=== PATIENT | male | born 1950 | race Caucasian/White ===

== ENCOUNTER 2016-11-19 11:24 | Emergency (ER) | payer MEDICARE, BC ==
[2016-11-19] MEDS ORDERED: LORazepam 2 MG/ML MDV IVPUSH ONE (11:28)
[2016-11-19 11:37] VITALS: BP 138/77
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
== END 2016-11-19 13:13 | disposition home or self-care (01) ==
LOC: JP.ED 11:24
DX: R07.89 Other chest pain (principal); F41.1 Generalized anxiety disorder; I10 Essential (primary) hypertension; K21.9 Gastro-esophageal reflux disease without esophagitis; E11.40 Type 2 diabetes mellitus with diabetic neuropathy, unspecified; Z90.49 Acquired absence of other specified parts of digestive tract; Z98.890 Other specified postprocedural states; Z87.891 Personal history of nicotine dependence; Z79.899 Other long term (current) drug therapy; Z88.5 Allergy status to narcotic agent; Z88.6 Allergy status to analgesic agent
CPT/HCPCS: 36415; 80048; 84484; 85025; 93005; 96374; 99285; J2060; 93010; 99284

== ENCOUNTER 2016-11-21 01:03 | Emergency (ER) | payer MEDICARE, BC ==
[2016-11-21] MEDS ORDERED: LORazepam 2 MG/ML MDV IVPUSH ONE (01:09)
[2016-11-21] MEDS ORDERED: Sodium Chloride 0.9% 10 ML Syringe FLUSH PRN (01:09)
[2016-11-21 03:30] VITALS: BP 101/59
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
== END 2016-11-21 08:21 | disposition home or self-care (01) ==
LOC: JP.ED 01:03
DX: R07.89 Other chest pain (principal); F41.9 Anxiety disorder, unspecified; E11.40 Type 2 diabetes mellitus with diabetic neuropathy, unspecified; I10 Essential (primary) hypertension; F32.9 Major depressive disorder, single episode, unspecified; K21.9 Gastro-esophageal reflux disease without esophagitis; Z87.891 Personal history of nicotine dependence; Z90.49 Acquired absence of other specified parts of digestive tract; Z98.890 Other specified postprocedural states; Z79.899 Other long term (current) drug therapy; Z88.5 Allergy status to narcotic agent; Z79.84 Long term (current) use of oral hypoglycemic drugs; Z88.6 Allergy status to analgesic agent
CPT/HCPCS: 36415; 84484; 85379; 96374; 99285; J2060; J7050; 93005; 93010; 99284

== ENCOUNTER 2018-10-12 07:58 | Day surgery (SDC) | payer MEDICARE ==
[~2018-10-12 07:58] MED LIST: Midazolam 1 MG/ML 2 ML SDV ONE; Propofol 200 MG/20 ML SDV ONE; Sodium Chloride 0.9% 1,000 ML IV SCH; fentaNYL 100 MCG/2 ML SDV ONE
[2018-10-12] MEDS: Sodium Chloride 0.9% 1,000 ML IV SCH (08:49)
[2018-10-12] MEDS ORDERED: fentaNYL 100 MCG/2 ML SDV ONE (09:08)
[2018-10-12] MEDS ORDERED: Midazolam 1 MG/ML 2 ML SDV ONE (09:08)
[2018-10-12] MEDS ORDERED: Propofol 200 MG/20 ML SDV ONE (09:08)
[2018-10-12] MEDS: Ropivacaine 27 ML, Dexamethasone 8 MG, EPINEPHrine 0.4 MG, Sodium Chloride 0.9% 50.6 ML NERVRT SCH ×4 (09:43)
[2018-10-12 11:27] VITALS: BP 104/73
--- NOTE | 2018-10-12 14:53 | OR ---
DATE OF PROCEDURE: 10/12/2018 PROCEDURE: Bilateral transversus abdominis plane block. COMPLICATIONS: None. ENGINEERING GROUP LEADER: None. RISKS: Risks, benefits, alternatives, and limitations including, but not limited to infection, bleeding, and perforation of abdominal structures were all explained to the patient who wished to proceed. PROCEDURE IN DETAIL: The patient was placed in the supine position. The left side was addressed first. The area was prepped and draped. Using 11 megahertz ultrasound probe, the transversus abdominis plane was readily identified. The entire content was injected under direct visualization without abnormality. At no time did the needle advance past the peritoneum. The area was then cleaned again with chlorhexidine and Band-Aid was applied. The opposite side was then performed in same manner, same fashion, same technique in the same sequence followed by ultrasound guidance, except different needle and syringe were used. The patient tolerated the procedure well. Jameel Stanford MD /[id number]
--- NOTE | 2018-10-15 13:59 | OR ---
DATE OF PROCEDURE: 10/12/2018 PROCEDURE: 1. EGD. 2. Colonoscopy. FINDINGS: 1. Mild gastritis. 2. Very poor colon prep. Due to poor prep, unable to pass in the transverse colon. COMPLICATIONS: None. SURGEON: Jameel Stanford MD BELL ATTENDANT: None. PREOPERATIVE DIAGNOSIS: Chronic abdominal pain. POSTOPERATIVE DIAGNOSIS: Chronic abdominal pain. RISKS: Risks, benefits, alternatives, and limitations including, but not limited to infection, bleeding, and perforation were explained to the patient, who wished to proceed. PROCEDURE IN DETAIL: The patient was placed in left lateral decubitus position. The EGD scope was introduced and advanced atraumatically in the second part of the duodenum. No abnormalities in there with respect to duodenitis and the other concern. In the stomach, the patient had gastritis what would be described as mild and without evidence of active bleeding. On retroflex, no hiatal hernia. The GE junction was normal. The esophagus was normal. Digital rectal exam was performed. Next, the scope was introduced and immediately a large amount of solid stool was noted. The scope was able to be advanced to level of the transverse colon, however, this was unable to be advanced further due to the significant amount of stool remaining. The procedure was then terminated. The patient tolerated the procedure well. Jameel Stanford MD /[id number]
== END 2018-10-12 12:24 | disposition home or self-care (01) ==
LOC: JP.SDS 07:58
PROVIDERS: ATTEND Surgery
DX: K29.70 Gastritis, unspecified, without bleeding (principal); R10.9 Unspecified abdominal pain; R19.7 Diarrhea, unspecified; F41.9 Anxiety disorder, unspecified; F32.9 Major depressive disorder, single episode, unspecified; E11.9 Type 2 diabetes mellitus without complications; Z88.5 Allergy status to narcotic agent
CPT/HCPCS: 43235; 45378; 64486; J0171; J1100; J2250; J2704; J2795; J3010; J7030; J7050

== ENCOUNTER 2020-11-14 10:43 | Emergency (ER) | payer MEDICARE ==
[2020-11-14 11:06] VITALS: BP 122/66; PULSE 87
--- NOTE | 2020-11-14 11:24 | EDM.PDOC ---
ED HPI GENERAL MEDICAL PROBLEM - General Chief Complaint: General Stated Complaint: ANXIOUS, CONFUSED, MEMORY LOSS Time Seen by Provider: 11/14/20 11:05 Source of Information: Reports: Patient, Other (Family friend) History Limitations: Reports: No Limitations - History of Present Illness INITIAL COMMENTS - FREE TEXT/NARRATIVE: 70-year-old male who has chronic anxiety, has had increased memory loss over the past several months but a few weeks ago he had an acute exacerbation of his anxiety and difficulty concentrating and was found to have a UTI. He was then incised primary care provider yesterday about a soreness on his backside, received a special pillow to sit on, but no further work-up was done. He had a fairly normal evening with his neighbors last night but this morning he showed up at their house anxious, confused, and said he could not concentrate or think straight. He has to be brought into the emergency room. He has had some intermittent mild headaches but no acute pain at this time. No fevers or chills, denies nausea or vomiting, no urinary symptoms. He is speaking clearly. Onset: Gradual (Sounds like this problem has been growing for months but had an acute exacerbation with a UTI recently) Associated Symptoms: Reports: Confusion, Headaches (Intermittent), Other (Increase anxiety) - Related Data Allergies Allergy/AdvReac Type Severity Reaction Status Date / Time ketorolac tromethamine AdvReac Intermediate Vomiting Verified 11/14/20 11:08 [From Toradol] morphine AdvReac Intermediate Vomiting Verified 11/14/20 11:08 Home Meds: Home Meds Gabapentin 800 mg PO TID 04/04/13 [History] Lisinopril 2.5 mg PO DAILY 04/04/13 [History] Tamsulosin HCl 0.4 mg PO DAILY 04/04/13 [History] metFORMIN [Glucophage] 500 mg PO DAILY 04/04/13 [History] Ibuprofen [Advil] 200 mg PO Q6H PRN 06/20/13 [History] Multivitamin with Minerals [Multiple Vitamin] 1 tab PO DAILY 12/01/14 [History] Potassium Chloride 10 meq PO DAILY 10/09/18 [History] Venlafaxine HCl [Venlafaxine ER] 37.5 mg PO DAILY 10/09/18 [History] Past Medical History HEENT History: Reports: Impaired Vision Cardiovascular History: Reports: Hypertension Gastrointestinal History: Reports: Bowel Obstruction, Cholelithiasis, Diverticulosis, GERD, Irritable Bowel Syndrome, Pancreatitis Other Gastrointestinal History: Bowel surgery with hernia repair in Apr 2014 Genitourinary History: Reports: Prostate Disorder, Renal Calculus Musculoskeletal History: Reports: Arthritis Other Musculoskeletal History: L arm pain Neurological History: Reports: Neuropathy, Diabetic Psychiatric History: Reports: Anxiety, Depression Endocrine/Metabolic History: Reports: Diabetes, Type II Dermatologic History: Reports: Other (See Below) Other Dermatologic History: rash - Infectious Disease History Infectious Disease History: Reports: Chicken Pox - Past Surgical History HEENT Surgical History: Reports: Oral Surgery Cardiovascular Surgical History: Reports: None GI Surgical History: Reports: Appendectomy, Cholecystectomy, Colon, Hernia Repair/Other Male Surgical History: Reports: Kidney Stone Extraction Musculoskeletal Surgical History: Reports: Carpal Tunnel Social & Family History - Family History Family Medical History: No Pertinent Family History Cardiac: Reports: [place] Neurological: Reports: CVA Endocrine/Metabolic: Reports: Diabetes, type II Oncologic: Reports: Breast - Tobacco Use Tobacco Use Status *Q: Never Tobacco User - Caffeine Use Caffeine Use: Reports: Coffee ED ROS GENERAL - Review of Systems Review Of Systems: See Below Constitutional: Reports: Malaise. Denies: Fever, Chills HEENT: Denies: Vision Change Respiratory: Denies: Shortness of Breath, Cough Cardiovascular: Denies: Chest Pain, Palpitations GI/Abdominal: Denies: Abdominal Pain, Nausea, Vomiting : Reports: No Symptoms Musculoskeletal: Denies: Neck Pain, Muscle Pain Skin: Reports: No Symptoms Neurological: Reports: Confusion. Denies: Weakness (Patient denies any physical weakness or paresthesias) Psychiatric: Reports: Anxiety, Confusion ED EXAM, GENERAL - Physical Exam Exam: See Below Exam Limited By: No Limitations General Appearance: Alert, No Apparent Distress, Anxious Eye Exam: Bilateral Eye: Normal Inspection Head: Atraumatic Neck: Supple, Non-Tender Respiratory/Chest: Lungs Clear Cardiovascular: Regular Rate, Rhythm. No: Tachycardia, Extra Beats GI/Abdominal: Soft, Non-Tender Extremities: Normal Inspection. No: Pedal Edema Neurological: Alert, Oriented. No: Inattentive, Disoriented (Patient is oriented, does not seem confused at this time but is anxious) Psychiatric: Anxious Skin Exam: Warm, Dry Course - Vital Signs Last Recorded V/S: Last Vital Signs Temp 98.2 F 11/14/20 11:06 Pulse 87 11/14/20 11:06 Resp 16 11/14/20 11:06 BP 122/66 11/14/20 11:06 Pulse Ox 95 11/14/20 11:06 - Orders/Labs/Meds Labs: Laboratory Tests 11/14/20 11/14/20 11/14/20 Range/Units 11:22 11:50 11:50 WBC 5.6 (4.5-11.0) K/uL RBC 3.48 L (4.30-5.90) M/uL Hgb 11.1 L (12.0-15.0) g/dL Hct 34.7 L (40.0-54.0) % MCV 100 H (80-98) fL MCH 32 H (27-31) pg MCHC 32 (32-36) % Plt Count 169 (150-400) K/uL Neut % (Auto) 49.5 (36-66) % Lymph % (Auto) 33.9 (24-44) % [place] % (Auto) 13.2 H (2-6) % Eos % (Auto) 2.9 (2-4) % Baso % (Auto) 0.5 (0-1) % Sodium 145 (140-148) mmol/L Potassium 3.6 (3.6-5.2) mmol/L Chloride 105 (100-108) mmol/L Carbon Dioxide 27 (21-32) mmol/L Anion Gap 13.0 (5.0-14.0) mmol/L BUN 15 (7-18) mg/dL Creatinine 1.2 (0.8-1.3) mg/dL Est Cr Clr Drug Dosing 47.28 mL/min Estimated GFR (MDRD) 60 (>60) Glucose 109 H (74-106) mg/dL Calcium 9.1 (8.5-10.1) mg/dL Total Bilirubin 1.0 (0.2-1.0) mg/dL AST 20 (15-37) U/L ALT 27 (12-78) U/L Alkaline Phosphatase 74 (46-116) U/L Total Protein 7.1 (6.4-8.2) g/dL Albumin 3.4 (3.4-5.0) g/dL Globulin 3.7 H (2.3-3.5) g/dL Albumin/Globulin Ratio 0.9 L (1.2-2.2) Urine Color Yellow (YELLOW) Urine Appearance Clear (CLEAR) Urine pH 5.5 (5.0-8.0) Ur Specific [place] >= 1.030 (1.008-1.030) Urine Protein Negative (NEGATIVE) mg/dL Urine Glucose (UA) Negative (NEGATIVE) mg/dL Urine Ketones Negative (NEGATIVE) mg/dL Urine Occult Blood Trace-lysed H (NEGATIVE) Urine Nitrite Negative (NEGATIVE) Urine Bilirubin Negative (NEGATIVE) Urine Urobilinogen 0.2 (0.2-1.0) EU/dL Ur Leukocyte Esterase Negative (NEGATIVE) Urine RBC 0-5 (0-5) Urine WBC 0-5 (0-5) Ur Epithelial Cells Not seen Amorphous Sediment Few Urine Bacteria Occasional Urine Mucus Few Urine Other See note - Re-Assessments/Exams Free Text/Narrative Re-Assessment/Exam: 11/14/20 11:[address] without contrast was obtained as well as a CBC, CMP and UA. Patient is in agreement that if initial work-up is negative, follow-up with his primary care would be warranted without acute treatment. 11/14/20 12:29 Labs are reassuring, hemoglobin is slightly low at 11.1 but consistent with a few years ago. Chemistry profile is normal. CT the head is negative for acute findings. Awaiting for urine. FINDINGS: There is no abnormal intracranial mass effect or midline shift. No acute intracranial hemorrhage. No appreciable loss of normal moses-white matter differentiation. Minimal periventricular white matter changes are likely related to chronic small vessel disease. Mild diffuse cerebral atrophy. No acute bony abnormality. Visualized paranasal sinuses and mastoids are clear. IMPRESSION: No CT evidence of an acute intracranial abnormality. 11/14/20 14:31 There was a fairly significant delay before the patient could give us a UA, which was negative. His neighbor who brought him in admitted that he seemed to be doing "fine now". This likely was related to anxiety. Patient will follow up with his primary provider when able. Departure - Departure Time of Disposition: 14:47 Disposition: Home, Self-Care 01 Clinical Impression: Anxiety about health, Confusion - Discharge Information Instructions: Managing Anxiety, Adult Referrals: Alvin Frazier MD [Primary Care Provider] - Forms: ED Department Discharge Care Plan Goals: Continue your current medications, and discuss with Dr. Frazier any other treatment options to help you feel better if symptoms are persistent. Sepsis Event Note (ED) - Evaluation Sepsis Screening Result: No Definite Risk - Focused Exam Vital Signs: Vital Signs Temp Pulse Resp BP Pulse Ox 11/14/20 11:06 98.2 F 87 16 122/66 95 11/14/20 11:04 98.2 F 87 16 122/66 95
--- NOTE | 2020-11-14 12:10 | CRLCT ---
INDICATION: Confusion. Headaches. TECHNIQUE: Axial images. Sagittal and coronal reconstructions. COMPARISON: None. FINDINGS: There is no abnormal intracranial mass effect or midline shift. No acute intracranial hemorrhage. No appreciable loss of normal moses-white matter differentiation. Minimal periventricular white matter changes are likely related to chronic small vessel disease. Mild diffuse cerebral atrophy. No acute bony abnormality. Visualized paranasal sinuses and mastoids are clear. IMPRESSION: No CT evidence of an acute intracranial abnormality. Dictated by Kennedy Varma MD @ 11/14/2020 12:09:21 PM Please note that all CT scans at this facility use dose modulation, iterative reconstruction, and/or weight-based dosing when appropriate to reduce radiation dose to as low as reasonably achievable. Dictated by: Kennedy Varma MD @ 11/14/2020 12:09:30 (Electronically Signed)
== END 2020-11-14 14:47 | disposition home or self-care (01) ==
LOC: JP.ED 10:43
DX: F41.9 Anxiety disorder, unspecified (principal); R41.0 Disorientation, unspecified; E11.9 Type 2 diabetes mellitus without complications; Z79.84 Long term (current) use of oral hypoglycemic drugs; Z79.899 Other long term (current) drug therapy; Z88.6 Allergy status to analgesic agent
CPT/HCPCS: 36415; 70450; 80053; 81001; 85025; 99285-25

== ENCOUNTER 2021-01-09 05:13 | Emergency (ER) | payer MEDICARE ==
[2021-01-09 05:25] VITALS: BP 119/63; PULSE 104
--- NOTE | 2021-01-09 05:44 | EDM.PDOC ---
ED HPI GENERAL MEDICAL PROBLEM - General Chief Complaint: Flank Pain Stated Complaint: R SIDE RIB PAIN Time Seen by Provider: 01/09/21 05:34 Source of Information: Reports: Patient History Limitations: Reports: No Limitations - History of Present Illness INITIAL COMMENTS - FREE TEXT/NARRATIVE: Alvin is a 70-year-old male presenting to the ED for evaluation of right sided anterior chest pain and right upper drink abdominal pain since falling off of his couch this morning. Patient was sleeping on his couch and turned to rollover causing him to fall off the couch and landed on a carpeted floor. Since then he has had significant pain in the right anterior chest and right upper quadrant. Causing pleurodynia. Patient is on no blood thinners. He is not taking anything for pain. Pain worsens with deep inspiration. Right Flank Pain Score (Numeric/FACES): 8 - Related Data Allergies Allergy/AdvReac Type Severity Reaction Status Date / Time ketorolac tromethamine AdvReac Intermediate Vomiting Verified 01/09/21 05:18 [From Toradol] morphine AdvReac Intermediate Vomiting Verified 01/09/21 05:18 Home Meds: Home Meds Gabapentin 800 mg PO BID 04/04/13 [History] Lisinopril 2.5 mg PO DAILY 04/04/13 [History] Tamsulosin HCl 0.4 mg PO DAILY 04/04/13 [History] metFORMIN [Glucophage] 500 mg PO DAILY 04/04/13 [History] Ibuprofen [Advil] 200 mg PO Q6H PRN 06/20/13 [History] Multivitamin with Minerals [Multiple Vitamin] 1 tab PO DAILY 12/01/14 [History] Potassium Chloride 10 meq PO DAILY 10/09/18 [History] Venlafaxine HCl [Venlafaxine ER] 37.5 mg PO DAILY 10/09/18 [History] Lidocaine 5% [Lidoderm 5%] 1 patch TOP DAILY #10 patch 01/09/21 [Rx] Past Medical History HEENT History: Reports: Impaired Vision Cardiovascular History: Reports: Hypertension Gastrointestinal History: Reports: Bowel Obstruction, Cholelithiasis, Diverticulosis, GERD, Irritable Bowel Syndrome, Pancreatitis Other Gastrointestinal History: Bowel surgery with hernia repair in Apr 2014 Genitourinary History: Reports: Prostate Disorder, Renal Calculus Musculoskeletal History: Reports: Arthritis Other Musculoskeletal History: L arm pain Neurological History: Reports: Neuropathy, Diabetic Psychiatric History: Reports: Anxiety, Depression Endocrine/Metabolic History: Reports: Diabetes, Type II Dermatologic History: Reports: Other (See Below) Other Dermatologic History: rash - Infectious Disease History Infectious Disease History: Reports: Chicken Pox - Past Surgical History HEENT Surgical History: Reports: Oral Surgery Cardiovascular Surgical History: Reports: None GI Surgical History: Reports: Appendectomy, Cholecystectomy, Colon, Hernia Repair/Other Male Surgical History: Reports: Kidney Stone Extraction Musculoskeletal Surgical History: Reports: Carpal Tunnel Social & Family History - Family History Family Medical History: No Pertinent Family History Cardiac: Reports: [place] Neurological: Reports: CVA Endocrine/Metabolic: Reports: Diabetes, type II Oncologic: Reports: Breast - Tobacco Use Tobacco Use Status *Q: Former Tobacco User Used Tobacco, but Quit: Yes Month/Year Tobacco Last Used: 06/2000 - Caffeine Use Caffeine Use: Reports: Coffee, Soda - Recreational Drug Use Recreational Drug Use: No ED ROS GENERAL - Review of Systems Review Of Systems: See Below Constitutional: Reports: No Symptoms HEENT: Reports: No Symptoms Respiratory: Reports: Pleuritic Chest Pain Cardiovascular: Reports: Chest Pain (Right anterior chest especially over ribs 6, 7 and 8) Endocrine: Reports: No Symptoms GI/Abdominal: Reports: Abdominal Pain (Right upper quadrant abdominal pain) : Reports: No Symptoms Musculoskeletal: Reports: No Symptoms Skin: Reports: No Symptoms Neurological: Reports: No Symptoms Psychiatric: Reports: No Symptoms Hematologic/Lymphatic: Reports: No Symptoms Immunologic: Reports: No Symptoms ED EXAM, GENERAL - Physical Exam Exam: See Below Exam Limited By: No Limitations General Appearance: Alert, Anxious, Mild Distress Eye Exam: Bilateral Eye: PERRL Head: Atraumatic, Normocephalic Neck: Normal Inspection, Supple Respiratory/Chest: No Respiratory Distress, Lungs Clear, Normal Breath Sounds, Splinting, Other (Pain with palpation over the right anterior chest from mid clavicular line to axillary line over ribs 6, 7, and 8. There is no step-off. There is no crepitus.) Cardiovascular: Normal Peripheral Pulses, Regular Rate, Rhythm, No Murmur GI/Abdominal: Normal Bowel Sounds, Guarding (Right upper quadrant), Tender (Moderate tenderness over the right upper quadrant.). No: Rigid, Rebound Back Exam: Normal Inspection Neurological: Alert, Oriented, Normal Cognition, No Motor/Sensory Deficits Skin Exam: Warm, Dry, Intact, Normal Color. No: Ecchymosis Course - Vital Signs Last Recorded V/S: Last Vital Signs Temp 36.6 C 01/09/21 05:24 Pulse 104 H 01/09/21 05:24 Resp 16 01/09/21 05:24 BP 119/63 01/09/21 05:24 Pulse Ox 96 01/09/21 05:24 - Orders/Labs/Meds Orders: Active Orders 24 hr Category Date Time Status COMPREHENSIVE METABOLIC PN,CMP [CHEM] Stat Lab 01/09/21 06:20 Received Labs: Laboratory Tests 01/09/21 01/09/21 Range/Units 06:20 06:20 WBC 5.8 (4.5-11.0) K/uL RBC 3.86 L (4.30-5.90) M/uL Hgb 12.0 (12.0-15.0) g/dL Hct 37.2 L (40.0-54.0) % MCV 96 (80-98) fL MCH 31 (27-31) pg MCHC 32 (32-36) % Plt Count 183 (150-400) K/uL PT 11.4 (9.5-12.0) sec INR 1.05 (0.80-1.20) APTT 26.8 L (27.0-36.0) sec Meds: Medications Discontinued Medications Generic Name Dose Route Start Last Admin Trade Name Freq PRN Reason Stop Dose Admin Lidocaine 700 mg 01/09/21 06:07 01/09/21 06:15 Lidocaine 5% 700 Mg Patch TRDERM 01/09/21 06:08 700 mg ONETIME ONE Administration - Radiology Interpretation Free Text/Narrative:: I reviewed the three-view x-rays of the right ribs. There is no evidence for acute fracture. - Re-Assessments/Exams Free Text/Narrative Re-Assessment/Exam: 01/09/21 06:19 x-rays of the right ribs failed to demonstrate any acute osseous abnormalities. The patient's injuries are likely due to a contusion of the chest wall or right upper quadrant. We will check a CBC, comprehensive metabolic panel, PT and PTT. A Lidoderm patch was applied over the area of the maximum soreness. 01/09/21 06:34 the patient does have a 1 cm right lower lung pulmonary nodule that has enlarged since previous imaging. The recommendation is the patient should follow-up with his primary care provider to evaluate for CT of the chest. 01/09/21 06:37 CBC is normal. 01/09/21 06:47 PT/INR and PTT are normal 01/09/21 07:10 comprehensive metabolic panel is unremarkable for any elevation of LFTs. This time the patient is suitable for discharge home in satisfactory condition. Departure - Departure Time of Disposition: 07:00 Disposition: Home, Self-Care 01 Clinical Impression: Right upper quadrant pain, Right lower lobe pulmonary nodule Contusion of right chest wall Qualifiers: Encounter type: initial encounter Qualified Code(s): S20.211A - Contusion of right front wall of thorax, initial encounter - Discharge Information Prescriptions: Lidocaine 5% [Lidoderm 5%] 1 patch TOP DAILY #10 patch Instructions: Abdominal Pain, Adult, [id number], Pulmonary Nodule, [id number], Blunt Chest Trauma Referrals: Alvin Frazier MD [Primary Care Provider] - Forms: ED Department Discharge Care Plan Goals: Your injuries today show that you likely bruised your ribs on the right chest. X-rays failed to demonstrate any evidence for rib fracture. I recommend picking up Salonpas 4% lidocaine patches and applying 1 over the area of pain replacing it daily. This could take up to 2 weeks to heal. As an incidental finding on your rib views, the the radiologist did state that you have a 1 cm pulmonary nodule involving the right lower lung and recommend you follow-up with your primary care provider who can arrange for you to have a CT of the chest to better evaluate this. This nodule was seen on previous x-rays but has enlarged over time. Sepsis Event Note (ED) - Evaluation Sepsis Screening Result: No Definite Risk - Focused Exam Vital Signs: Vital Signs Temp Pulse Resp BP Pulse Ox 01/09/21 05:24 36.6 C 104 H 16 119/63 96 - Problem List & Annotations (1) Contusion of right chest wall SNOMED Code(s): 12970551441773766 Code(s): S20.211A - CONTUSION OF RIGHT FRONT WALL OF THORAX, INITIAL ENCOUNTER Status: Acute Priority: Medium Current Visit: Yes Qualifiers: Encounter type: initial encounter Qualified Code(s): S20.211A - Contusion of right front wall of thorax, initial encounter (2) Right upper quadrant pain SNOMED Code(s): 469204228 Code(s): R10.11 - RIGHT UPPER QUADRANT PAIN Status: Acute Priority: Medium Current Visit: Yes (3) Right lower lobe pulmonary nodule SNOMED Code(s): 041128378 Code(s): R91.1 - SOLITARY PULMONARY NODULE Status: Acute Priority: Medium Current Visit: Yes - Problem List Review Problem List Initiated/Reviewed/Updated: Yes - My Orders Last 24 Hours: My Active Orders 01/09/21 06:20 COMPREHENSIVE METABOLIC PN,CMP [CHEM] Stat - Assessment/Plan Last 24 Hours: My Active Orders 01/09/21 06:20 COMPREHENSIVE METABOLIC PN,CMP [CHEM] Stat
[2021-01-09] MEDS ORDERED: Lidocaine 5% 700 MG Patch TRDERM ONE (06:07)
--- NOTE | 2021-01-09 06:32 | CRLCR ---
For Patients: As a result of the Cures Act, medical imaging exams and procedure reports are released immediately into your electronic medical record. You may view this report before your referring provider. If you have questions, please contact your health care provider. INDICATION: Fall off couch, right rib pain, injury TECHNIQUE: Chest radiograph, Rib radiographs 3 views right COMPARISON: 08/13/2015 FINDINGS: Mediastinum: The mediastinum is normal in appearance. The heart silhouette is normal in size and morphology. Lung: Mild bibasilar atelectasis is noted. Both apices are excluded. There is a 1 cm nodular density in the right lung base that is slightly more prominent than on prior exam. No sign of pleural effusion seen. No pneumothorax is identified. Ribs and bones: The apical ribs are excluded. No definite acute rib fractures are identified in the visualized ribs. The remaining osseous structures are unremarkable for age. Soft tissue: Unremarkable. IMPRESSIONS: 1. No acute cardiopulmonary disease is seen. No acute rib injuries noted. 2. There is a 1 cm nodular density in the right lung base that is slightly more prominent than on prior exam. Evaluation with outpatient chest CT recommended. Dictated by Melvin Rubio MD @ 01/09/2021 6:31:06 AM Dictated by: Melvin Rubio MD @ 01/09/2021 06:31:12 (Electronically Signed)
== END 2021-01-09 07:02 | disposition home or self-care (01) ==
LOC: JP.ED 05:13
DX: S20.211A Contusion of right front wall of thorax, initial encounter (principal); R91.1 Solitary pulmonary nodule; R10.11 Right upper quadrant pain; I10 Essential (primary) hypertension; E11.40 Type 2 diabetes mellitus with diabetic neuropathy, unspecified; Z87.891 Personal history of nicotine dependence; Z88.5 Allergy status to narcotic agent; Z79.84 Long term (current) use of oral hypoglycemic drugs; Z79.899 Other long term (current) drug therapy; W08.XXXA Fall from other furniture, initial encounter
CPT/HCPCS: 36415; 71101; 80053; 85027; 85610; 85730; 99284; A9270

== ENCOUNTER 2021-01-23 00:56 | Emergency (ER) | payer MEDICARE ==
[2021-01-23 01:07] VITALS: BP 136/62; PULSE 88
--- NOTE | 2021-01-23 01:23 | EDM.PDOC ---
ED HPI GENERAL MEDICAL PROBLEM - General Chief Complaint: Skin Complaint Stated Complaint: BLEEDING Time Seen by Provider: 01/23/21 01:18 Source of Information: Reports: Patient History Limitations: Reports: No Limitations - History of Present Illness INITIAL COMMENTS - FREE TEXT/NARRATIVE: Is a 70-year-old male presenting to the ED for concerns about bleeding from his rectum. He started having the bleeding tonight. He denies any anal pain, diarrhea, nausea or vomiting, or abdominal pain. The patient states that he has had a wound on his bottom that he has been dealing with for short period of time but it started bleeding tonight and he could not get it to stop bleeding. - Related Data Allergies Allergy/AdvReac Type Severity Reaction Status Date / Time ketorolac tromethamine AdvReac Intermediate Vomiting Verified 01/23/21 01:06 [From Toradol] morphine AdvReac Intermediate Vomiting Verified 01/23/21 01:06 Home Meds: Home Meds Gabapentin 800 mg PO BID 04/04/13 [History] Lisinopril 2.5 mg PO DAILY 04/04/13 [History] Tamsulosin HCl 0.4 mg PO DAILY 04/04/13 [History] metFORMIN [Glucophage] 500 mg PO DAILY 04/04/13 [History] Ibuprofen [Advil] 200 mg PO Q6H PRN 06/20/13 [History] Multivitamin with Minerals [Multiple Vitamin] 1 tab PO DAILY 12/01/14 [History] Potassium Chloride 10 meq PO DAILY 10/09/18 [History] Venlafaxine HCl [Venlafaxine ER] 37.5 mg PO DAILY 10/09/18 [History] Lidocaine 5% [Lidoderm 5%] 1 patch TOP DAILY #10 patch 01/09/21 [Rx] Past Medical History HEENT History: Reports: Impaired Vision Cardiovascular History: Reports: Hypertension Gastrointestinal History: Reports: Bowel Obstruction, Cholelithiasis, Diverticulosis, GERD, Irritable Bowel Syndrome, Pancreatitis Other Gastrointestinal History: Bowel surgery with hernia repair in Apr 2014 Genitourinary History: Reports: Prostate Disorder, Renal Calculus Musculoskeletal History: Reports: Arthritis Other Musculoskeletal History: L arm pain Neurological History: Reports: Neuropathy, Diabetic, Other (See Below) Other Neuro History: memory issues Psychiatric History: Reports: Anxiety, Depression Endocrine/Metabolic History: Reports: Diabetes, Type II Dermatologic History: Reports: Other (See Below) Other Dermatologic History: rash - Infectious Disease History Infectious Disease History: Reports: Chicken Pox - Past Surgical History HEENT Surgical History: Reports: Oral Surgery Cardiovascular Surgical History: Reports: None GI Surgical History: Reports: Appendectomy, Cholecystectomy, Colon, Hernia Repair/Other Male Surgical History: Reports: Kidney Stone Extraction Musculoskeletal Surgical History: Reports: Carpal Tunnel Social & Family History - Family History Family Medical History: No Pertinent Family History Cardiac: Reports: [place] Neurological: Reports: CVA Endocrine/Metabolic: Reports: Diabetes, type II Oncologic: Reports: Breast - Tobacco Use Tobacco Use Status *Q: Never Tobacco User - Caffeine Use Caffeine Use: Reports: Coffee, Soda ED ROS GENERAL - Review of Systems Review Of Systems: See Below Skin: Reports: Wound (Skin tear on the left buttock measuring approximately 2.4 x 2.7 cm. There does appear to be a bulla adjacent to this. There is significant erythema in the perirectal area.) ED EXAM, SKIN/RASH Exam: See Below Exam Limited By: No Limitations General Appearance: Alert, Anxious Rectal (Males) Exam: Normal Rectal Tone, Other (There is increased erythema and induration of the skin around the perirectal area extending out to the buttocks and abutting the bulla and skin tear. This is worrisome for perirectal cellulitis.) Psychiatric: Anxious Skin: Erythema (Perirectal erythema.), Wound/Incision (There is a skin tear of the the left buttock measuring 2.4 x 2.7 cm. There is mild bleeding from the skin tear. There appears to be an adjacent bulla and significant erythema in the perirectal area.) Course - Vital Signs Last Recorded V/S: Last Vital Signs Temp 36.1 C 01/23/21 01:07 Pulse 88 01/23/21 01:07 Resp 18 01/23/21 01:07 BP 136/62 01/23/21 01:07 Pulse Ox 95 01/23/21 01:07 Departure - Departure Time of Disposition: 01:51 Disposition: Home, Self-Care 01 Clinical Impression: Perirectal cellulitis Tear of skin of left buttock Qualifiers: Encounter type: initial encounter Qualified Code(s): S31.821A - Laceration without foreign body of left buttock, initial encounter - Discharge Information Instructions: Nonsutured Laceration Care, Cellulitis, Adult Referrals: Alvin Frazier MD [Primary Care Provider] - Forms: ED Department Discharge Care Plan Goals: Please keep the dressing in place for the next 7 days if possible. This should help take the pressure off the skin and allow it to heal. In addition, you have a infection of the skin around the rectum which we are going to treat with cephalexin 500 mg twice daily for 7 days. This medication has been sent down to the [facility] machine so you may start it tonight. Sepsis Event Note (ED) - Evaluation Sepsis Screening Result: No Definite Risk - Focused Exam Vital Signs: Vital Signs Temp Pulse Resp BP Pulse Ox 01/23/21 01:07 36.1 C 88 18 136/62 95 01/23/21 01:06 36.1 C 88 18 136/62 95 - Problem List & Annotations (1) Perirectal cellulitis SNOMED Code(s): 260468 Code(s): K61.1 - RECTAL ABSCESS Status: Acute Priority: Low Current Visit: Yes (2) Tear of skin of left buttock SNOMED Code(s): 330143720, [id number] Code(s): S31.821A - LACERATION WITHOUT FOREIGN BODY OF LEFT BUTTOCK, INIT ENCNTR Status: Acute Priority: Low Current Visit: Yes Qualifiers: Encounter type: initial encounter Qualified Code(s): S31.821A - Laceration without foreign body of left buttock, initial encounter
== END 2021-01-23 02:07 | disposition home or self-care (01) ==
LOC: JP.ED 00:56
DX: S31.821A Laceration without foreign body of left buttock, initial encounter (principal); K61.1 Rectal abscess; I10 Essential (primary) hypertension; E11.40 Type 2 diabetes mellitus with diabetic neuropathy, unspecified; Z88.5 Allergy status to narcotic agent; Z88.6 Allergy status to analgesic agent; Z79.84 Long term (current) use of oral hypoglycemic drugs; Z79.899 Other long term (current) drug therapy; X58.XXXA Exposure to other specified factors, initial encounter
CPT/HCPCS: 99282

== ENCOUNTER 2021-11-30 10:23 | Emergency (ER) | payer MEDICARE ==
[2021-11-30] MEDS ORDERED: ceFAZolin 1 GM Vial IM ONE (12:14)
[2021-11-30] MEDS ORDERED: Proparacaine 0.5% Ophth Soln 15 ML Bottle EYERT ONE (12:15)
[2021-11-30] MEDS ORDERED: valACYclovir 1,000 MG Tab PO ONE (12:18)
[2021-11-30 12:50] VITALS: BP 108/65; PULSE 75
== END 2021-11-30 13:08 | disposition home or self-care (01) ==
LOC: JP.ED 10:23
DX: L03.213 Periorbital cellulitis (principal); H10.9 Unspecified conjunctivitis; B02.8 Zoster with other complications; H53.8 Other visual disturbances; F32.A Depression, unspecified; I10 Essential (primary) hypertension; F41.9 Anxiety disorder, unspecified; Z79.84 Long term (current) use of oral hypoglycemic drugs; Z87.891 Personal history of nicotine dependence; Z79.899 Other long term (current) drug therapy; Z88.5 Allergy status to narcotic agent; Z88.6 Allergy status to analgesic agent
CPT/HCPCS: 96372; 99282; 99283; A9270; J0690

== ENCOUNTER 2022-01-16 10:46 | Emergency (ER) | payer MEDICARE ==
[2022-01-16 15:12] VITALS: BP 147/78; PULSE 66
== END 2022-01-16 15:44 | disposition home or self-care (01) ==
LOC: JP.ED 10:46
DX: R51.9 Headache, unspecified (principal); I10 Essential (primary) hypertension; E11.9 Type 2 diabetes mellitus without complications; Z88.1 Allergy status to other antibiotic agents; Z88.6 Allergy status to analgesic agent; Z79.899 Other long term (current) drug therapy; Z79.84 Long term (current) use of oral hypoglycemic drugs; Z90.49 Acquired absence of other specified parts of digestive tract
CPT/HCPCS: 36415; 80048; 81001; 85025; 99281; 99284

== ENCOUNTER 2022-11-01 13:53 | Emergency (ER) | payer MEDICARE ==
[2022-11-01 14:00] VITALS: PULSE 84
[2022-11-01] MEDS ORDERED: Aluminum Hydroxide/Magnesium Hydroxide/Simethicone Susp 30 ML Cup PO ONE (14:31)
[2022-11-01 14:32] VITALS: BP 98/53
[2022-11-01 14:42] LABS: BASOPHILS ABSOLUTE AUTO 0.08 K/uL (0.00-0.10); BASOPHILS PERCENT AUTO 1.3 % (0.1-1.3); EOSINOPHILS ABSOLUTE AUTO 0.38 K/uL (0.00-0.40); EOSINOPHILS PERCENT AUTO 6.1 % (0.0-5.4); HEMATOCRIT 31.7 % (38.4-49.7); HEMOGLOBIN 10.6 g/dL (12.9-16.9); IMMATURE GRAN PERCENT AUTO 0.3 % (0.0-0.7); LYMPHOCYTES ABSOLUTE AUTO 1.43 K/uL (0.8-3.3); MEAN CORPUSCULAR HEMOGLOBIN 31.1 pg (31.6-35.5); MEAN CORPUSCULAR HGB CONC 33.4 g/dL (31.6-35.5); MONOCYTES ABSOLUTE AUTO 0.83 K/uL (0.20-0.90); MONOCYTES PERCENT AUTO 13.4 % (3.3-12.6); NEUTROPHILS ABSOLUTE AUTO 3.47 K/uL (1.0-7.6); NEUTROPHILS PERCENT AUTO 55.9 % (40.0-78.1); PLATELET COUNT,PLT 200 K/uL (130-375); RED BLOOD CELL COUNT 3.41 M/uL (4.14-5.76); WHITE BLOOD CELL COUNT,WBC 6.2 K/uL (3.2-11.0)
[2022-11-01 14:43] LABS: IMMATURE GRAN ABSOLUTE AUTO 0.02 K/uL (0.00-0.23)
[2022-11-01 15:02] LABS: A/G RATIO 0.8 (1.2-2.2); ALANINE AMINOTRANSFERASE,ALT 23 U/L (12-78); ALBUMIN 3.4 g/dL (3.4-5.0); ALKALINE PHOSPHATASE 92 U/L (46-116); ANION GAP 12.4 mmol/L (5.0-14.0); ASPARTATE AMNIOTRANSFERASE,AST 24 U/L (15-37); BILIRUBIN TOTAL 1.3 mg/dL (0.2-1.0); BLOOD UREA NITROGEN,BUN 17 mg/dL (7-18); CALCIUM 9.8 mg/dL (8.5-10.1); CARBON DIOXIDE,CO2 26 mmol/L (21-32); CHLORIDE,CL 102 mmol/L (100-108); CREATININE 1.4 mg/dL (0.8-1.3); EST CRCL DRUG DOSING (CG) 37.82 mL/min; ESTIMATED GFR 53 mL/min (>60); GLUCOSE RANDOM 125 mg/dL (74-106); LIPASE 136 U/L (73-393); POTASSIUM,K 4.4 mmol/L (3.6-5.2); PROTEIN TOTAL,TP 7.9 g/dL (6.4-8.2); SODIUM,NA 136 mmol/L (140-148)
== END 2022-11-01 16:36 | disposition home or self-care (01) ==
LOC: JP.ED 13:53
DX: K59.9 Functional intestinal disorder, unspecified (principal); I10 Essential (primary) hypertension; E11.9 Type 2 diabetes mellitus without complications; Z88.1 Allergy status to other antibiotic agents; Z88.6 Allergy status to analgesic agent; Z79.899 Other long term (current) drug therapy; Z90.49 Acquired absence of other specified parts of digestive tract; Z87.891 Personal history of nicotine dependence
CPT/HCPCS: 36415; 74176; 80053; 83690; 85025; 99285; A9270

== ENCOUNTER 2023-02-12 10:43 | Emergency (ER) | payer MEDICARE | END 2023-02-12 12:03 | disposition left against medical advice (07) | LOC: JP.ED 10:43 | DX: Z53.21 Procedure and treatment not carried out due to patient leaving prior to being seen by health care provider (principal) ==

== ENCOUNTER 2023-08-25 08:21 | Emergency (ER) | payer MEDICARE ==
[2023-08-25] MEDS: Acetaminophen 325 MG Tab PO ONE (08:47)
[2023-08-25] MEDS: Sodium Chloride 0.9% 1,000 ML IV SCH (08:48)
[2023-08-25 08:54] LABS: BASOPHILS PERCENT AUTO 0.2 % (0.1-1.3); EOSINOPHILS ABSOLUTE AUTO 0.09 K/uL (0.00-0.40); EOSINOPHILS PERCENT AUTO 0.8 % (0.0-5.4); HEMATOCRIT 29.9 % (38.4-49.7); IMMATURE GRAN ABSOLUTE AUTO 0.06 K/uL (0.00-0.23); IMMATURE GRAN PERCENT AUTO 0.5 % (0.0-0.7); LYMPHOCYTES ABSOLUTE AUTO 0.36 K/uL (0.8-3.3); LYMPHOCYTES PERCENT AUTO 3.2 % (11.4-47.7); MEAN CORPUSCULAR HEMOGLOBIN 30.6 pg (31.6-35.5); MEAN CORPUSCULAR HGB CONC 33.4 g/dL (31.6-35.5); MEAN CORPUSCULAR VOLUME 91.4 fL (81.4-99.0); NEUTROPHILS ABSOLUTE AUTO 9.78 K/uL (1.0-7.6); NEUTROPHILS PERCENT AUTO 87.3 % (40.0-78.1); PLATELET COUNT,PLT 300 K/uL (130-375); RED BLOOD CELL COUNT 3.27 M/uL (4.14-5.76); WHITE BLOOD CELL COUNT,WBC 11.2 K/uL (3.2-11.0)
[2023-08-25 09:02] LABS: BASOPHILS ABSOLUTE AUTO 0.02 K/uL (0.00-0.10)
[2023-08-25 09:10] LABS: INR 1.3; PROTHROMBIN TIME 13.4 sec (9.2-10.6)
[2023-08-25 09:15] LABS: A/G RATIO 0.4 (1.2-2.2); ALANINE AMINOTRANSFERASE,ALT 14 U/L (12-78); ALBUMIN 2.3 g/dL (3.4-5.0); ALKALINE PHOSPHATASE 87 U/L (46-116); ASPARTATE AMNIOTRANSFERASE,AST 20 U/L (15-37); BILIRUBIN TOTAL 0.7 mg/dL (0.2-1.0); BLOOD UREA NITROGEN,BUN 31 mg/dL (7-18); CALCIUM 9.7 mg/dL (8.5-10.1); CARBON DIOXIDE,CO2 23 mmol/L (21-32); CHLORIDE,CL 99 mmol/L (100-108); CREATININE 2.4 mg/dL (0.8-1.3); EST CRCL DRUG DOSING (CG) 20.79 mL/min; ESTIMATED GFR 28 mL/min (>60); GLUCOSE RANDOM 109 mg/dL (74-106); POTASSIUM,K 3.7 mmol/L (3.6-5.2); PROTEIN TOTAL,TP 7.9 g/dL (6.4-8.2); SODIUM,NA 135 mmol/L (140-148)
[2023-08-25 09:24] LABS: ANION GAP 16.7 mmol/L (5.0-14.0)
[2023-08-25 13:56] VITALS: BP 102/53; PULSE 81
== END 2023-08-25 13:56 | disposition critical access hospital (66) ==
LOC: JP.ED 08:21
DX: S02.2XXA Fracture of nasal bones, initial encounter for closed fracture (principal); S02.19XA Other fracture of base of skull, initial encounter for closed fracture; S02.832A Fracture of medial orbital wall, left side, initial encounter for closed fracture; S02.831A Fracture of medial orbital wall, right side, initial encounter for closed fracture; S02.92XA Unspecified fracture of facial bones, initial encounter for closed fracture; I10 Essential (primary) hypertension; E11.40 Type 2 diabetes mellitus with diabetic neuropathy, unspecified; Z79.899 Other long term (current) drug therapy; Z88.5 Allergy status to narcotic agent; W01.198A Fall on same level from slipping, tripping and stumbling with subsequent striking against other object, initial encounter
CPT/HCPCS: 36415; 70450; 70486; 72125; 80053; 84484; 85025; 85610; 93005; 96360; 96361; 99285; A9270; J7030; 93010

== ENCOUNTER 2023-09-01 16:13 | Inpatient (IN) | payer MEDICARE ==
[2023-09-01 17:05] LABS: BASOPHILS PERCENT AUTO 0.1 % (0.1-1.3); EOSINOPHILS PERCENT AUTO 0.1 % (0.0-5.4); HEMATOCRIT 25.2 % (38.4-49.7); HEMOGLOBIN 8.2 g/dL (12.9-16.9); IMMATURE GRAN ABSOLUTE AUTO 0.05 K/uL (0.00-0.23); IMMATURE GRAN PERCENT AUTO 0.5 % (0.0-0.7); LYMPHOCYTES ABSOLUTE AUTO 1.49 K/uL (0.8-3.3); LYMPHOCYTES PERCENT AUTO 13.9 % (11.4-47.7); MEAN CORPUSCULAR HEMOGLOBIN 30.1 pg (31.6-35.5); MEAN CORPUSCULAR HGB CONC 32.5 g/dL (31.6-35.5); MEAN CORPUSCULAR VOLUME 92.6 fL (81.4-99.0); MONOCYTES ABSOLUTE AUTO 0.59 K/uL (0.20-0.90); MONOCYTES PERCENT AUTO 5.5 % (3.3-12.6); NEUTROPHILS ABSOLUTE AUTO 8.56 K/uL (1.0-7.6); NEUTROPHILS PERCENT AUTO 79.9 % (40.0-78.1); PLATELET COUNT,PLT 261 K/uL (130-375); RED BLOOD CELL COUNT 2.72 M/uL (4.14-5.76); WHITE BLOOD CELL COUNT,WBC 10.7 K/uL (3.2-11.0)
[2023-09-01 17:07] LABS: BASOPHILS ABSOLUTE AUTO 0.01 K/uL (0.00-0.10); EOSINOPHILS ABSOLUTE AUTO 0.01 K/uL (0.00-0.40)
[2023-09-01 17:28] LABS: A/G RATIO 0.4 (1.2-2.2); ALANINE AMINOTRANSFERASE,ALT 22 U/L (12-78); ALKALINE PHOSPHATASE 114 U/L (46-116); ASPARTATE AMNIOTRANSFERASE,AST 29 U/L (15-37); BILIRUBIN TOTAL 0.2 mg/dL (0.2-1.0); BLOOD UREA NITROGEN,BUN 21 mg/dL (7-18); CALCIUM 8.9 mg/dL (8.5-10.1); CARBON DIOXIDE,CO2 34 mmol/L (21-32); CHLORIDE,CL 100 mmol/L (100-108); CREATININE 1.2 mg/dL (0.8-1.3); EST CRCL DRUG DOSING (CG) 43.47 mL/min; ESTIMATED GFR 63 mL/min (>60); GLUCOSE RANDOM 141 mg/dL (74-106); MAGNESIUM 1.9 mg/dL (1.8-2.4); POTASSIUM,K 3.1 mmol/L (3.6-5.2); PROTEIN TOTAL,TP 6.6 g/dL (6.4-8.2); SODIUM,NA 141 mmol/L (140-148)
[2023-09-01 17:29] LABS: ANION GAP 10.1 mmol/L (5.0-14.0); TROPONIN I HIGH SENSITIVITY < 4.0 pg/mL (<=60.3)
[2023-09-01] MEDS: Sodium Chloride 0.9% 1,000 ML IV SCH ×2 (17:47→21:56)
[2023-09-01 18:15] LABS: CORONAVIRUS COVID-19 NAA NEGATIVE (NEGATIVE); INFLUENZA A NAA NEGATIVE (NEGATIVE); INFLUENZA B NAA NEGATIVE (NEGATIVE); RESPIRATORY SYNCYTIAL VIR NAA NEGATIVE (NEGATIVE)
[2023-09-01] MEDS: Potassium Chloride 10% 20 MEQ/15 ML Soln 15 ML UD Cup PO ONE (19:13)
[2023-09-01] MEDS ORDERED: Sodium Chloride 0.9% 100 ML IV SCH (19:30)
[2023-09-01 19:33] LABS: APPEARANCE,URINE SLIGHTLY CLOUDY (CLEAR); BILIRUBIN,URINE NEGATIVE (NEGATIVE); COLOR,URINE YELLOW (YELLOW); GLUCOSE,URINE NEGATIVE (NEGATIVE); KETONES,URINE NEGATIVE (NEGATIVE); LEUKOCYTE ESTERASE,URINE NEGATIVE (NEGATIVE); NITRITE,URINE NEGATIVE (NEGATIVE); OCCULT BLOOD,URINE MODERATE (NEGATIVE); PROTEIN,URINE 30 mg/dL (NEGATIVE); UROBILINOGEN,URINE 0.2 EU/dL (0.2-1.0)
[2023-09-01 19:38] LABS: RBC,URINE 30-40 (0-5)
[2023-09-01 19:39] LABS: AMORPHOUS SEDIMENT,URINE NOT SEEN; BACTERIA,URINE MODERATE; EPITHELIAL CELLS,URINE FEW; MUCUS,URINE FEW; WBC,URINE 0-5 (0-5)
[2023-09-01] MEDS ORDERED: Sennosides/Docusate Sodium 50-8.6 MG Tab PO PRN (21:21)
[2023-09-01] MEDS ORDERED: Ondansetron 4 MG Tab.DIS PO PRN (21:21)
[2023-09-01] MEDS ORDERED: Ondansetron 4 MG/2 ML SDV IV PRN (21:21)
[2023-09-01] MEDS ORDERED: Magnesium Hydroxide 400 MG/5 ML Susp 30 ML Cup PO PRN (21:21)
[2023-09-01] MEDS: Lactobacillus Rhamnosus GG (Probiotic) Cap PO SCH (21:55)
[2023-09-01] MEDS ORDERED: Meropenem 1 GM in Sodium Chloride 0.9% 100 ML IV SCH (22:15)
[2023-09-01] MEDS: Meropenem 500 MG in Sodium Chloride 0.9% 50 ML IV SCH (23:10)
[2023-09-02 04:59] LABS: CALCIUM 8.3 mg/dL (8.5-10.1); CREATININE 0.8 mg/dL (0.8-1.3); EST CRCL DRUG DOSING (CG) 56.26 mL/min; POTASSIUM,K 3.8 mmol/L (3.6-5.2)
[2023-09-02 05:10] LABS: ANION GAP 6.8 mmol/L (5.0-14.0)
[2023-09-02 05:23] LABS: HEMOGLOBIN 7.5 g/dL (12.9-16.9); MEAN CORPUSCULAR HEMOGLOBIN 30.2 pg (31.6-35.5); MEAN CORPUSCULAR HGB CONC 32.6 g/dL (31.6-35.5); MEAN CORPUSCULAR VOLUME 92.7 fL (81.4-99.0); RED BLOOD CELL COUNT 2.48 M/uL (4.14-5.76); WHITE BLOOD CELL COUNT,WBC 8.5 K/uL (3.2-11.0)
[2023-09-02] MEDS: Pantoprazole 40 MG Tab.CR PO SCH (08:10)
[2023-09-02] MEDS: Insulin Lispro 100 Unit/ML 3 ML KwikPen SUBCUT SCH (08:16)
[2023-09-02] MEDS: Loperamide 2 MG Cap PO PRN (13:34)
[2023-09-02] MEDS: Meropenem 1 GM in Sodium Chloride 0.9% 100 ML IV SCH (14:34)
[2023-09-02] MEDS: Dimethicone 20%/Zinc Oxide 25% 56 GM Spray Bottle TOP PRN (14:35)
[2023-09-02] MEDS: Melatonin 3 MG Tab PO PRN (20:08)
[2023-09-03 04:44] LABS: HEMATOCRIT 24.8 % (38.4-49.7); HEMOGLOBIN 8.1 g/dL (12.9-16.9); MEAN CORPUSCULAR HEMOGLOBIN 30.2 pg (31.6-35.5); MEAN CORPUSCULAR HGB CONC 32.7 g/dL (31.6-35.5); MEAN CORPUSCULAR VOLUME 92.5 fL (81.4-99.0); RED BLOOD CELL COUNT 2.68 M/uL (4.14-5.76); WHITE BLOOD CELL COUNT,WBC 7.3 K/uL (3.2-11.0)
[2023-09-03 05:06] LABS: ANION GAP 3.6 mmol/L (5.0-14.0); CALCIUM 8.6 mg/dL (8.5-10.1); CREATININE 0.7 mg/dL (0.8-1.3); EST CRCL DRUG DOSING (CG) 64.3 mL/min; POTASSIUM,K 4.2 mmol/L (3.6-5.2); VANCOMYCIN RANDOM 25.3 ug/mL (0.0-50.0)
[2023-09-03] MEDS: Amoxicillin/Clavulanate K 875-125 MG Tab PO SCH (17:22)
[2023-09-03] MEDS: Acetaminophen 325 MG Tab PO PRN (17:22)
[2023-09-04] MEDS: Aluminum Hydroxide/Magnesium Hydroxide/Simethicone Susp 30 ML Cup PO ONE (02:22)
[2023-09-04 05:01] LABS: HEMATOCRIT 22.5 % (38.4-49.7); HEMOGLOBIN 7.4 g/dL (12.9-16.9); MEAN CORPUSCULAR HGB CONC 32.9 g/dL (31.6-35.5); MEAN CORPUSCULAR VOLUME 91.1 fL (81.4-99.0); RED BLOOD CELL COUNT 2.47 M/uL (4.14-5.76); WHITE BLOOD CELL COUNT,WBC 7.8 K/uL (3.2-11.0)
[2023-09-04] MEDS: Iopamidol 755 Mg/ML 100 ML Bottle IV SCH (14:36)
[2023-09-05 05:55] LABS: HEMATOCRIT 22.5 % (38.4-49.7); HEMOGLOBIN 7.3 g/dL (12.9-16.9); MEAN CORPUSCULAR HEMOGLOBIN 29.8 pg (31.6-35.5); MEAN CORPUSCULAR HGB CONC 32.4 g/dL (31.6-35.5); MEAN CORPUSCULAR VOLUME 91.8 fL (81.4-99.0); RED BLOOD CELL COUNT 2.45 M/uL (4.14-5.76); RETICULOCYTE COUNT PERCENT 1.57 % (0.03-0.11); WHITE BLOOD CELL COUNT,WBC 6.9 K/uL (3.2-11.0)
[2023-09-05 06:17] LABS: IRON,FE 59 ug/dL (65-175); PERCENT FE SATURATION 33 % (20-55); TOTAL IRON BINDING CAPACITY 181 ug/dl (250-450)
[2023-09-05 06:42] LABS: FOLIC ACID 2.3 ng/ml (8.6-58.9)
[2023-09-05] MEDS: Folic Acid 1 MG Tab PO SCH (08:53)
[2023-09-05] MEDS: Ferrous Sulfate 325 MG Tab PO SCH (08:53)
[2023-09-06 05:48] LABS: HEMATOCRIT 24.5 % (38.4-49.7); HEMOGLOBIN 8.1 g/dL (12.9-16.9); MEAN CORPUSCULAR HEMOGLOBIN 30.7 pg (31.6-35.5); MEAN CORPUSCULAR HGB CONC 33.1 g/dL (31.6-35.5); MEAN CORPUSCULAR VOLUME 92.8 fL (81.4-99.0); RED BLOOD CELL COUNT 2.64 M/uL (4.14-5.76); WHITE BLOOD CELL COUNT,WBC 7.3 K/uL (3.2-11.0)
[2023-09-06 05:58] LABS: CALCIUM 9.1 mg/dL (8.5-10.1); CREATININE 0.9 mg/dL (0.8-1.3); EST CRCL DRUG DOSING (CG) 50.01 mL/min; POTASSIUM,K 4.1 mmol/L (3.6-5.2)
[2023-09-06 06:01] LABS: ANION GAP 10.1 mmol/L (5.0-14.0)
[2023-09-07 10:49] VITALS: BP 105/61; PULSE 79
[2023-09-07] MEDS ORDERED: Amoxicillin/Clavulanate K 875-125 MG Tab PO SCH (17:00)
== END 2023-09-07 14:14 | DRG 178 ==
LOC: JP.ED 16:13 → JP.MS 19:38 → OBSVTOIN 09-04 08:14
PROVIDERS: ADMIT Internal Medicine; ATTEND Hospitalist
DX: R53.1 Weakness (principal); J69.0 Pneumonitis due to inhalation of food and vomit; I10 Essential (primary) hypertension; F03.A3 Unspecified dementia, mild, with mood disturbance; S02.92XA Unspecified fracture of facial bones, initial encounter for closed fracture; F03.A4 Unspecified dementia, mild, with anxiety; R55 Syncope and collapse; J18.9 Pneumonia, unspecified organism; Z66 Do not resuscitate; E87.6 Hypokalemia; D64.9 Anemia, unspecified; L89.319 Pressure ulcer of right buttock, unspecified stage; L89.159 Pressure ulcer of sacral region, unspecified stage; E11.40 Type 2 diabetes mellitus with diabetic neuropathy, unspecified; M19.90 Unspecified osteoarthritis, unspecified site; K21.9 Gastro-esophageal reflux disease without esophagitis; R19.7 Diarrhea, unspecified; R11.2 Nausea with vomiting, unspecified; Z88.5 Allergy status to narcotic agent; Z90.49 Acquired absence of other specified parts of digestive tract; Z98.49 Cataract extraction status, unspecified eye; Z90.89 Acquired absence of other organs; Z79.899 Other long term (current) drug therapy; Z87.442 Personal history of urinary calculi; W19.XXXA Unspecified fall, initial encounter
CPT/HCPCS: 0241U; 36415; 70450; 71045; 71275; 73030; 80048; 80053; 80202; 81001; 82607; 82728; 82746; 82947; 83550; 83615; 83735; 84145; 84484; 85018; 85025; 85027; 85045; 87070; 87077; 87205; 87493; 92610; 93005; 93010; 96360; 97110; 97161; 97165; 97530; 99232; 99238; 99285; 96361; 96365; 96366; 96367; 96376; 99222; A9270-GY; C1758; G0378; J1815; J2185; J3370; J3490; J7030; J7050; Q9967

== ENCOUNTER 2023-09-27 04:48 | Emergency (ER) | payer MEDICARE ==
[2023-09-27 05:30] VITALS: BP 109/58; PULSE 108
== END 2023-09-27 09:04 ==
LOC: JP.ED 04:48
DX: S20.212A Contusion of left front wall of thorax, initial encounter (principal); S00.03XA Contusion of scalp, initial encounter; I10 Essential (primary) hypertension; E11.40 Type 2 diabetes mellitus with diabetic neuropathy, unspecified; Z88.5 Allergy status to narcotic agent; Z79.899 Other long term (current) drug therapy; Z90.49 Acquired absence of other specified parts of digestive tract; Z87.891 Personal history of nicotine dependence; W19.XXXA Unspecified fall, initial encounter; Y92.009 Unspecified place in unspecified non-institutional (private) residence as the place of occurrence of the external cause
CPT/HCPCS: 70450; 70486; 71250; 99285